=== PATIENT | female | born 1980 | race African-American/Black ===

== ENCOUNTER 2017-05-16 11:55 | Emergency (ER) | payer OTHER, MEDICAID ==
[~2017-05-16] VITALS: Ht 162.6 cm; Wt 100.2 kg
[~2017-05-16 11:55] MED LIST: AMLO5TAB8 PO; ATEN25TA2 PO; ATI.5 PO; BUS5 PO; DICY20TA13 PO; FLUO-387 PO; FURO-572 PO; MESA1.2T PO; OMEP20TC10 PO; PANT40EC PO; TRAZ-289 PO
[2017-05-16 12:06] VITALS: BP 124/88
--- NOTE | 2017-05-16 12:52 | NUR ---
Patient ambulated to bed 7 at this time.
--- NOTE | 2017-05-16 13:02 | NUR ---
PT REFERRED TO ER BY PCP FOR EVALUATION OF EPIGASTRIC PAIN, R/O PANCREATITIS OR ALTERNATE ACUTE ETIOLOGY. HX HTN, CROHN'S DISEASE, COLITIS, DEPRESSION.PT STATES SHE HAS N AND VOMITTED TODAY. SKIN IS PINK/WARM/DRY; AAOX4 WITH EVEN AND STEADY GAIT; LUNGS CLEAR BL; HR EVEN AND REGULAR; PT DENIES ANY FEVER, CP, SOB, OR COUGH AT THIS TIME; PATIENT STATES PAIN OF 9/10 AT THIS TIME; PATIENT POSITIONED FOR COMFORT; HOB ELEVATED; BEDRAILS UP X2; BED DOWN. ER MD WILL BE NOTIFIED.
[2017-05-16] MEDS ORDERED: NACL 0.9% 1,000 ML IV ONE (13:15)
[2017-05-16] MEDS ORDERED: HYDROmorphone 1 MG/ML AMP IVP ONE ×2 (13:15→15:00)
[2017-05-16 14:08] LABS: BASOPHILS # (AUTO) 0.2 K/uL (0.00-0.22); BASOPHILS % (AUTO) 2.1 % (0.0-2.0); EOSINOPHILS # (AUTO) 0.2 K/uL (0-0.4); EOSINOPHILS % (AUTO) 1.9 % (0.0-4.0); HEMATOCRIT 26.6 % (36-48); HEMOGLOBIN 7.4 g/dL (12.0-16.0); LYMPHOCYTES # (AUTO) 2.2 K/uL (2.5-16.5); LYMPHOCYTES % (AUTO) 19.5 % (20.5-51.1); MEAN CORPUSCULAR HEMOGLOBIN 17 pg (27-31); MEAN CORPUSCULAR HGB CONC 28 g/dL (33-37); MEAN CORPUSCULAR VOLUME 60 fL (80-94); MONOCYTES # (AUTO) 0.5 K/uL (0.8-1.0); MONOCYTES % (AUTO) 4.4 % (1.7-9.3); NEUTROPHILS % (AUTO) 72.1 % (42.2-75.2); PLATELET COUNT (AUTO) 442 K/uL (140-450); RED BLOOD CELL COUNT(AUTO) 4.41 MIL/uL (4.20-5.40); RED CELL DISTRIBUTION WIDTH 17.4 % (11.6-13.7); WHITE BLOOD COUNT (AUTO) 11.1 K/uL (4.8-10.8)
[2017-05-16 14:19] LABS: APPEARANCE,URINE CLEAR (CLEAR); BILIRUBIN,URINE 1+ (NEGATIVE); BLOOD, URINE NEGATIVE (NEGATIVE); COLOR,URINE YELLOW (YELLOW); LEUKOCYTE ESTERASE ,URINE NEGATIVE (NEGATIVE); NITRITE, URINE NEGATIVE (NEGATIVE); PH,URINE 5.5 (5.0-9.0); PROTEIN,URINE TRACE (NEGATIVE); UGLUCOSE NEGATIVE (NEGATIVE); UROBILINOGEN,URINE 0.2 EU/dL (0.2 - 1)
[2017-05-16 14:31] LABS: ANION GAP 14.2 (8-16); CALCIUM 8.9 mg/dL (8.5-10.1); CARBON DIOXIDE 24.6 mmol/L (21-32); CREATININE 0.7 mg/dL (0.6-1.3); POTASSIUM 3.8 mmol/L (3.5-5.1)
[2017-05-16 14:33] LABS: AMPHETAMINE, URINE NEG. ng/ml (NEG <=1000); BARBITURATE, URINE NEG. ng/ml (NEG <=200); BENZODIAZEPINE, URINE NEG. ng/mL (NEG <=200); CANNABINOID, URINE NEG. ng/mL (NEG <=50); COCAINE, URINE NEG. ng/mL (NEG <=300); OPIATE, URINE NEG. ng/mL (NEG <=2000); PHENCYCLIDINE SCREEN,URINE NEG. ng/mL (NEG <=25)
[2017-05-16 14:45] LABS: ALBUMIN 2.9 g/dL (3.4-5.0); TOTAL BILIRUBIN 0.2 mg/dL (0.0-1.0); TOTAL PROTEIN, SERUM 7.4 g/dL (6.4-8.2)
--- NOTE | 2017-05-16 16:07 | NUR ---
Patient discharged with v/s stable. Written and verbal after care instructions given and explained. Patient alert, oriented and verbalized understanding of instructions. Ambulatory with steady gait. All questions addressed prior to discharge. ID band removed. Patient advised to follow up with PMD. Rx of NORCO AND ZOFRAN given. Patient educated on indication of medication including possible reaction and side effects. Opportunity to ask questions provided and answered.
[2017-05-16 16:08] VITALS: BP 141/88
== END 2017-05-16 16:07 | disposition home or self-care (01) ==
LOC: MED 11:55
DX: R10.13 Epigastric pain (principal); K58.0 Irritable bowel syndrome with diarrhea; D64.9 Anemia, unspecified; Z88.5 Allergy status to narcotic agent; Z88.1 Allergy status to other antibiotic agents; I10 Essential (primary) hypertension; F32.9 Major depressive disorder, single episode, unspecified; K50.90 Crohn's disease, unspecified, without complications
CPT/HCPCS: 36415; 74176; 80053; 80305; 81003; 81025; 83605; 83690; 85025; 96361; 96374; 96376; 99285; J1170; J7030

== ENCOUNTER 2017-05-19 18:00 | Inpatient (IN) | payer OTHER, MEDICAID ==
[~2017-05-19] VITALS: Ht 162.6 cm; Wt 99.8 kg
[2017-05-19 18:02] VITALS: BP 113/65
[2017-05-19 19:03] LABS: BASOPHILS # (AUTO) 0.2 K/uL (0.00-0.22); BASOPHILS % (AUTO) 1.2 % (0.0-2.0); EOSINOPHILS # (AUTO) 0.5 K/uL (0-0.4); EOSINOPHILS % (AUTO) 3.3 % (0.0-4.0); HEMATOCRIT 26.2 % (36-48); HEMOGLOBIN 7.4 g/dL (12.0-16.0); LYMPHOCYTES # (AUTO) 1.3 K/uL (2.5-16.5); LYMPHOCYTES % (AUTO) 8.9 % (20.5-51.1); MEAN CORPUSCULAR HEMOGLOBIN 17 pg (27-31); MEAN CORPUSCULAR HGB CONC 28 g/dL (33-37); MEAN CORPUSCULAR VOLUME 59 fL (80-94); MONOCYTES # (AUTO) 0.3 K/uL (0.8-1.0); MONOCYTES % (AUTO) 2.3 % (1.7-9.3); NEUTROPHILS # (AUTO) 12.6 K/uL (1.8-7.7); NEUTROPHILS % (AUTO) 84.3 % (42.2-75.2); PLATELET COUNT (AUTO) 477 K/uL (140-450); RED BLOOD CELL COUNT(AUTO) 4.42 MIL/uL (4.20-5.40); WHITE BLOOD COUNT (AUTO) 14.9 K/uL (4.8-10.8)
[2017-05-19 19:14] LABS: ANION GAP 12.2 (8-16); CALCIUM 8.8 mg/dL (8.5-10.1); CARBON DIOXIDE 25.5 mmol/L (21-32); CREATININE 0.7 mg/dL (0.6-1.3); POTASSIUM 3.7 mmol/L (3.5-5.1)
[2017-05-19 19:19] LABS: ALBUMIN 2.9 g/dL (3.4-5.0); TOTAL BILIRUBIN 0.3 mg/dL (0.0-1.0); TOTAL PROTEIN, SERUM 7.4 g/dL (6.4-8.2)
--- NOTE | 2017-05-19 19:49 | NUR ---
PATIENT AMBULATED TO ER BED 5.
--- NOTE | 2017-05-19 19:50 | NUR ---
PATIENT PRESENTS TO ED WITH SEVERE ABDOMINAL PAIN X1 WEEK . PT STATES SHE WAS IN ER YESTERDAY, IT IS GETTING WORSE; NAUSEA AND VOMITING PRESENT, PT IS AAOX4 WITH EVEN AND STEADY GAIT; LUNGS CLEAR BL; HR EVEN AND REGULAR; PT DENIES ANY FEVER, CP, SOB, OR COUGH AT THIS TIME; SKIN IS PINK/WARM/DRY;PATIENT STATES PAIN OF 10/10 AT THIS TIME; VSS; PATIENT POSITIONED FOR COMFORT; HOB ELEVATED; BEDRAILS UP X2; BED DOWN. ER MD MADE AWARE OF PT STATUS.
--- NOTE | 2017-05-19 20:28 | NUR ---
PATIENT BEING EVALUATED BY DR. LATHAM.
[2017-05-19] MEDS ORDERED: NACL 0.9% 1,000 ML IV ONE (20:55)
[2017-05-19] MEDS ORDERED: HYDROmorphone 1 MG/ML AMP IVP ONE ×2 (20:55→22:45)
--- NOTE | 2017-05-19 21:25 | NUR ---
OFF UNIT FOR CT VIA WHEELCHAIR
--- NOTE | 2017-05-19 21:32 | NUR ---
PT IS BACK TO UNIT, STILL C/O PAIN, ER MD MADE AWARE.
[2017-05-19] MEDS ORDERED: DOCUSATE SODIUM 100 MG GELCAP PO PRN (22:35)
[2017-05-19] MEDS ORDERED: ACETAMINOPHEN 325 MG TAB PO PRN (22:35)
[2017-05-19 22:47] LABS: BLOOD, URINE NEGATIVE (NEGATIVE); COLOR,URINE YELLOW (YELLOW); LEUKOCYTE ESTERASE ,URINE NEGATIVE (NEGATIVE); NITRITE, URINE NEGATIVE (NEGATIVE); PROTEIN,URINE TRACE (NEGATIVE); UGLUCOSE NEGATIVE (NEGATIVE); UROBILINOGEN,URINE 0.2 EU/dL (0.2 - 1)
[2017-05-19 22:51] LABS: APPEARANCE,URINE HAZY (CLEAR); BILIRUBIN,URINE NEGATIVE (NEGATIVE)
[2017-05-19 22:52] LABS: BACTERIA,URINE 1+ /HPF (None Seen); MUCUS,URINE 3+ /LPF (None Seen); RBC,URINE 0-5 /HPF (0-5); WBC,URINE 0-5 /HPF (0-5)
[2017-05-19 22:54] LABS: AMPHETAMINE, URINE NEG. ng/ml (NEG <=1000); BARBITURATE, URINE NEG. ng/ml (NEG <=200); BENZODIAZEPINE, URINE NEG. ng/mL (NEG <=200); CANNABINOID, URINE NEG. ng/mL (NEG <=50); COCAINE, URINE NEG. ng/mL (NEG <=300); OPIATE, URINE POS. ng/mL (NEG <=2000); PHENCYCLIDINE SCREEN,URINE NEG. ng/mL (NEG <=25)
[2017-05-19 23:04] LABS: MAGNESIUM 1.8 mg/dL (1.8-2.4); PHOSPHORUS 3.4 mg/dL (2.5-4.9); THYROID STIMULATING HORMONE 1.42 uIU/mL (0.34-3.74)
[2017-05-19] MEDS ORDERED: LORazepam 0.5 MG TAB PO PRN (23:05)
[2017-05-19] MEDS ORDERED: DICYCLOMINE HCL PO PRN (23:05)
--- NOTE | 2017-05-20 00:05 | NUR ---
PT TRANSFERRED TO ROOM 104A VIA [facility], REPORT GIVEN TO ERIN GARCIA.
--- NOTE | 2017-05-20 00:10 | NUR ---
ADMITTED A 37 YEARS OLD FEMALE TO TELE UNIT. PATIENT AWAKE ALERT ORIENTED X4, NO S/S OF ACUTE DISTRESS NOTED, RESPIRATION EVEN AND UNLABORED. TELE MONITOR IS IN PLACE. IV PATENT AND INTACT. CALL LIGHT WITHIN REACH, SAFETY MEASURE ENSURED, DR. MARVIN IS IN THE ROOM ASSESSING AND INTERVIEWING THE PATIENT AT THIS TIME.
[2017-05-20] MEDS ORDERED: HYDROmorphone 1 MG/ML AMP IVP PRN ×2 (00:20→16:20)
[2017-05-20 00:30] VITALS: BP 134/83
[2017-05-20] MEDS ORDERED: cefTRIAXone 1,000 MG VIAL ONE (01:00)
[2017-05-20 01:03] LABS: LACTIC ACID 0.5 mmol/L (0.4-2.0)
[2017-05-20] MEDS: NACL 0.9% 1,000 ML IV SCH ×4 (01:05→22:16)
[2017-05-20] MEDS ORDERED: ESCI20TA PO (01:16)
[2017-05-20] MEDS ORDERED: BUS5 PO (01:16)
--- NOTE | 2017-05-20 01:20 | NUR ---
PATIENT REPORTED ABDOMINAL PAIN 06/25. MEDICATED ORDERED. CALL LIGHT WITHIN REACH, SAFETY MEASURE ENSURED, WILL CONTINUE TO MONITOR.
[2017-05-20] MEDS ORDERED: FERRIC GLUCONATE 125 MG in NACL 0.9% 100 ML IV SCH ×3 (02:00→12:00)
--- NOTE | 2017-05-20 03:30 | NUR ---
PATIENT SLEEPING IN BED, NO S/S OF ACUTE DISTRESS NOTED, RESPIRATION EVEN AND UNLABORED. CALL LIGHT WITHIN REACH, SAFETY MEASURE ENSURED, WILL CONTINUE TO MONITOR.
[2017-05-20 04:00] VITALS: BP 130/86
[2017-05-20] MEDS: HYDROmorphone 1 MG/ML AMP IVP PRN ×3 (07:06→22:35)
--- NOTE | 2017-05-20 07:10 | NUR ---
PATIENT REPORTED ABDOMINAL PAIN 06/25. MEDICATED ORDERED, CHANGED POSITION, AND DIM LIGHT, SAFETY MEASURE ENSURED, WILL CONTINUE TO MONITOR
--- NOTE | 2017-05-20 07:30 | NUR ---
RECEIVED REPORT FROM NIGHT NURSE, PT IS AAOX4, PT ON ROOM AIR, IV TO L HAND 22 G, INFUSING WELL, SKIN IS IN TACT, INITIAL ASSESSMENT COMPLETED, REVIEWED PLAN OF CARE WITH PT, PT VERBALIZED UNDERSTANDING, ALL SAFETY PRECAUTIONS MET, CALL LIGHT WITHIN REACH, WILL CONTINUE TO MONITOR.
--- NOTE | 2017-05-20 07:40 | NUR ---
ENDORSED PLAN OF CARE TO DAY RN, PATIENT IS IN STABLE CONDITION. RESPIRATION EVEN AND UNLABORED, AWAKE ALERT ORIENTEDX4.
[2017-05-20 07:46] LABS: ANION GAP 14.7 (8-16); CALCIUM 8.2 mg/dL (8.5-10.1); CARBON DIOXIDE 22.8 mmol/L (21-32); CREATININE 0.6 mg/dL (0.6-1.3); POTASSIUM 3.5 mmol/L (3.5-5.1)
[2017-05-20 07:55] LABS: MEAN CORPUSCULAR HEMOGLOBIN 18 pg (27-31); MEAN CORPUSCULAR HGB CONC 29 g/dL (33-37); MEAN CORPUSCULAR VOLUME 60 fL (80-94); PLATELET COUNT (AUTO) 379 K/uL (140-450); RED BLOOD CELL COUNT(AUTO) 3.68 MIL/uL (4.20-5.40); RED CELL DISTRIBUTION WIDTH 17.3 % (11.6-13.7); WHITE BLOOD COUNT (AUTO) 9.9 K/uL (4.8-10.8)
[2017-05-20 08:04] LABS: HEMOGLOBIN 6.4 g/dL (12.0-16.0)
[2017-05-20 08:13] VITALS: BP 116/61
[2017-05-20] MEDS ORDERED: methylPREDNISolone SS 40 MG/ML VIAL IVP SCH (08:33)
[2017-05-20 08:48] LABS: EOSINOPHILS % (MANUAL) 2 % (0-4); LYMPHOCYTES % (MANUAL) 10 % (20-46); MONOCYTES % (MANUAL) 5 % (5-12); NEUTROPHILS % (MANUAL) 83 (43-65); PLATELET ESTIMATE ADEQUATE
[2017-05-20 08:49] LABS: HYPOCHROMASIA 2+; TARGET CELLS 1+
[2017-05-20] MEDS: FLUoxetine 20 MG CAP PO SCH ×2 (09:00→09:05)
[2017-05-20] MEDS ORDERED: MESALAMINE PO SCH (09:00)
[2017-05-20] MEDS ORDERED: PANTOPRAZOLE 40 MG TABEC PO SCH (09:00)
[2017-05-20] MEDS: amLODIPine 5 MG TAB PO SCH (09:00)
[2017-05-20] MEDS: busPIRone 5 MG TAB PO SCH ×2 (09:03→21:06)
[2017-05-20] MEDS: predniSONE 20 MG TAB PO SCH (09:04)
[2017-05-20] MEDS: PANTOPRAZOLE 40 MG TABEC PO SCH (09:04)
[2017-05-20] MEDS: FUROSEMIDE 20 MG TAB PO SCH (09:05)
--- NOTE | 2017-05-20 09:05 | NUR ---
DUE MEDICATIONS GIVEN, NORVASC NOT GIVEN BP OF 116/61, PT C/O ABD PAIN 05/25, WILL MEDICATE PER MD ORDERS. ALL NEEDS MET. WILL CONTINUE TO MONITOR.
[2017-05-20] MEDS: ATENOLOL 25 MG TAB PO SCH ×2 (09:06→21:07)
[2017-05-20] MEDS: HYDROcodone/APAP 7.5/325 MG 1 TAB PO PRN (09:31)
--- NOTE | 2017-05-20 10:41 | NUR ---
05/20/17 RD INITIAL ASSESSMENT COMPLETED PLEASE REFER TO NUTRITION ASSESSMENT UNDER CARE ACTIVITY FOR ESTIMATED NEEDS. RECOMMENDATIONS: 1. CONTINUE SOFT DIET TOLERATED. 2. APPRECIATE FOOD PREFERENCES. 3. RD WILL FOLLOW UP IN 2-3 DAYS; HIGH RISK. WILMER AMEZCU[address] RD
[2017-05-20] MEDS ORDERED: MESALAMINE 250 MG CAPER PO SCH (10:45)
--- NOTE | 2017-05-20 11:39 | NUR ---
PLACED PT ON SALINE LOCK.
[2017-05-20 12:00] VITALS: BP 112/44
[2017-05-20] MEDS ORDERED: FERRIC GLUCONATE 125 MG in NACL 0.9% 100 ML IV ONE (12:30)
--- NOTE | 2017-05-20 12:48 | NUR ---
PT STATES PAIN LEVEL AT 7/10, WILL MEDICATE ONCE PAIN MEDICATION IS DUE. ALL NEEDS MET. WILL CONTINUE TO MONITOR.
--- NOTE | 2017-05-20 15:25 | NUR ---
PT CURRENTLY TAKING A SHOWER
[2017-05-20 15:26] LABS: HEMATOCRIT 24.6 % (36-48); MEAN CORPUSCULAR HEMOGLOBIN 17 pg (27-31); MEAN CORPUSCULAR HGB CONC 28 g/dL (33-37); MEAN CORPUSCULAR VOLUME 60 fL (80-94); PLATELET COUNT (AUTO) 441 K/uL (140-450); RED CELL DISTRIBUTION WIDTH 17.1 % (11.6-13.7); WHITE BLOOD COUNT (AUTO) 10.5 K/uL (4.8-10.8)
[2017-05-20 15:37] LABS: HEMOGLOBIN 6.9 g/dL (12.0-16.0)
[2017-05-20 15:54] LABS: BAND % (MANUAL) 1 % (0-8); EOSINOPHILS % (MANUAL) 1 % (0-4); HYPOCHROMASIA 3+; LYMPHOCYTES % (MANUAL) 5 % (20-46); NEUTROPHILS % (MANUAL) 93 (43-65); PLATELET ESTIMATE ADEQUATE
[2017-05-20 16:00] VITALS: BP 112/72
[2017-05-20] MEDS: MESALAMINE 250 MG CAPER PO SCH ×2 (16:59→21:10)
--- NOTE | 2017-05-20 17:01 | NUR ---
DUE MEDICATIONS GIVEN, PT TOLERATED WELL. ALL NEEDS MET. WILL CONTINUE TO MONITOR
--- NOTE | 2017-05-20 19:15 | NUR ---
ENDORSED PLAN OF CARE TO NIGHT NURSE PT IN STABLE CONDITION.
--- NOTE | 2017-05-20 19:15 | NUR ---
RECEIVED PATIENT REPORT AT BEDSIDE. PATIENT AWAKE, ALERT AND ORIENTED. PATIENT C/O 10/10 ABD PAIN. PATIENT WAS MEDICATED BY THE DAY NURSE. WILL CONTINUE TO MONITOR. BED LOWERED WITH CALL LIGHT WITHIN REACH. WILL CONTINUE TO MONITOR
[2017-05-20 19:52] VITALS: BP 125/72
--- NOTE | 2017-05-20 20:00 | NUR ---
PATIENT STATES THAT DILAUDID AND NORCO DO NOT RELIEVE HER PAIN. MADE DR VALENCIA AWARE
[2017-05-20] MEDS ORDERED: traZODone 50 MG TAB PO SCH (21:00)
[2017-05-20] MEDS ORDERED: DICYCLOMINE 10 MG CAP PO SCH (21:00)
[2017-05-20] MEDS: DICYCLOMINE 10 MG CAP PO SCH (21:09)
[2017-05-20] MEDS: ONDANSETRON 4 MG/2 ML VIAL IM/IVP PRN (22:43)
[2017-05-21 00:26] VITALS: BP 96/46
[2017-05-21] MEDS: HYDROcodone/APAP 7.5/325 MG 1 TAB PO PRN (00:33)
[2017-05-21 03:24] VITALS: BP 103/58
[2017-05-21] MEDS: HYDROmorphone 1 MG/ML AMP IVP PRN ×4 (03:26→13:07)
[2017-05-21] MEDS: NACL 0.9% 1,000 ML IV SCH ×2 (04:11→11:36)
[2017-05-21 07:09] LABS: ANION GAP 11.1 (8-16); CALCIUM 8.7 mg/dL (8.5-10.1); CARBON DIOXIDE 25.1 mmol/L (21-32); CREATININE 0.7 mg/dL (0.6-1.3); POTASSIUM 3.2 mmol/L (3.5-5.1)
[2017-05-21 07:12] LABS: HEMATOCRIT 22.4 % (36-48); MEAN CORPUSCULAR HEMOGLOBIN 17 pg (27-31); MEAN CORPUSCULAR HGB CONC 29 g/dL (33-37); MEAN CORPUSCULAR VOLUME 60 fL (80-94); PLATELET COUNT (AUTO) 359 K/uL (140-450); RED BLOOD CELL COUNT(AUTO) 3.74 MIL/uL (4.20-5.40); RED CELL DISTRIBUTION WIDTH 17.7 % (11.6-13.7)
[2017-05-21 07:17] LABS: MAGNESIUM 1.8 mg/dL (1.8-2.4); PHOSPHORUS 3.3 mg/dL (2.5-4.9)
[2017-05-21 07:20] LABS: HEMOGLOBIN 6.4 g/dL (12.0-16.0)
--- NOTE | 2017-05-21 07:27 | NUR ---
RECEIVED REPORT FROM NIGHT NURSE, PT IS AAOX4, PT IS ON ROOM AIR, IV TO L FA 22 G, INFUSING WELL, PATENT, SKIN IS INTACT, INITIAL ASSESSMENT COMPLETED.REVIEWED PLAN OF CARE WITH PT, VERBALIZED UNDERSTANDING, ALL SAFETY PRECAUTIONS MET, CALL LIGHT WITHIN REACH, WILL CONTINUE TO MONITOR
--- NOTE | 2017-05-21 07:27 | NUR ---
PATIENT REPORT GIVEN AT BEDSIDE. PATIENT ENDORSED IN STABLE CONDITION
[2017-05-21 07:53] LABS: BAND % (MANUAL) 0 % (0-8); BASOPHILS % (MANUAL) 0 % (0-2); EOSINOPHILS % (MANUAL) 2 % (0-4); LYMPHOCYTES % (MANUAL) 17 % (20-46); MONOCYTES % (MANUAL) 8 % (5-12); NEUTROPHILS % (MANUAL) 73 (43-65); PLATELET ESTIMATE ADEQUATE
[2017-05-21 08:00] VITALS: BP 121/77
[2017-05-21] MEDS: amLODIPine 5 MG TAB PO SCH (09:00)
[2017-05-21] MEDS: FLUoxetine 20 MG CAP PO SCH (09:00)
[2017-05-21] MEDS: ATENOLOL 25 MG TAB PO SCH (09:00)
[2017-05-21] MEDS: predniSONE 20 MG TAB PO SCH (09:53)
[2017-05-21] MEDS: DICYCLOMINE 10 MG CAP PO SCH ×2 (09:54→12:22)
[2017-05-21] MEDS: ONDANSETRON 4 MG/2 ML VIAL IM/IVP PRN (09:54)
[2017-05-21] MEDS: PANTOPRAZOLE 40 MG TABEC PO SCH (09:54)
[2017-05-21] MEDS: FUROSEMIDE 20 MG TAB PO SCH (09:54)
[2017-05-21] MEDS: busPIRone 5 MG TAB PO SCH (09:54)
[2017-05-21] MEDS: MESALAMINE 250 MG CAPER PO SCH ×2 (09:55→12:22)
--- NOTE | 2017-05-21 09:56 | NUR ---
DUE MEDICATION GIVEN PT TOLERATED WELL. DUE MEDICATION GIVEN. ALL NEEDS MET WILL CONTINUE TO MONITOR
[2017-05-21] MEDS ORDERED: FERRIC GLUCONATE 125 MG in NACL 0.9% 100 ML IV SCH (12:00)
--- NOTE | 2017-05-21 12:31 | NUR ---
MEDICATIONS ADMINISTERED, PT TOLERATED WELL, ALL NEEDS MET, SAFETY PRECAUTIONS IN PLACE, CALL LIGHT WITHIN REACH, WILL CONTINUE TO MONITOR
[2017-05-21 13:20] LABS: T4 (THYROXINE) 14.6 ug/dL (4.5 - 12.0)
--- NOTE | 2017-05-21 13:33 | NUR ---
ENDORSED PLAN OF CARE TO LAXMI RN. PT STABLE CONDITION.
--- NOTE | 2017-05-21 15:00 | NUR ---
PT WANTS TO LEAVE AMA BECAUSE SHE HAS NOTHING SHE CAN EAT HERE IN THE HOSPITAL, DR GUTIERREZ MADE AWARE.
--- NOTE | 2017-05-21 15:14 | NUR ---
PT SIGNED AMA FORM, IV DC'D, CATH TIP INTACT, BLEEDING CONTROLLED, PT WALKED OUT OF ROOM, ESCORTED OUT TO FRONT LOBBY.
[2017-05-22] MEDS ORDERED: LACTOBACILLUS RHAMNOSUS GG 1 EACH CAP PO SCH (09:00)
[2017-05-23 11:20] LABS: HEMOGLOBIN A1C 5.8 % (4.8-5.6)
== END 2017-05-21 15:14 | disposition left against medical advice (07) | DRG 871 ==
LOC: MED 18:00 → MTU 22:38
PROVIDERS: ADMIT Family Medicine; ATTEND Family Medicine
DX: A41.9 Sepsis, unspecified organism (principal); N17.0 Acute kidney failure with tubular necrosis; K50.00 Crohn's disease of small intestine without complications; N39.0 Urinary tract infection, site not specified; E44.1 Mild protein-calorie malnutrition; K56.7 Ileus, unspecified; K57.32 Diverticulitis of large intestine without perforation or abscess without bleeding; F32.9 Major depressive disorder, single episode, unspecified; I10 Essential (primary) hypertension; E83.51 Hypocalcemia; D50.0 Iron deficiency anemia secondary to blood loss (chronic); E11.51 Type 2 diabetes mellitus with diabetic peripheral angiopathy without gangrene; Z53.21 Procedure and treatment not carried out due to patient leaving prior to being seen by health care provider; Z88.6 Allergy status to analgesic agent; Z88.5 Allergy status to narcotic agent; Z88.8 Allergy status to other drugs, medicaments and biological substances; Z91.018 Allergy to other foods; Z79.899 Other long term (current) drug therapy; Z90.49 Acquired absence of other specified parts of digestive tract; Z98.51 Tubal ligation status; Z71.3 Dietary counseling and surveillance; Z68.37 Body mass index [BMI] 37.0-37.9, adult
CPT/HCPCS: 36415; 71010; 80048; 80053; 80305; 81001; 83036; 83605; 83690; 83735; 83880; 84100; 84436; 84443; 84479; 85025; 87040; 87081; 93005; 96374; 96376; 99285; J0696; J1170; J2405; J2916; J2920; J7030; J7060; J7512; Q0092

== ENCOUNTER 2017-06-09 07:38 | Inpatient (IN) | payer OTHER, MEDICAID ==
[~2017-06-09] VITALS: Ht 162.6 cm; Wt 98.9 kg
[~2017-06-09 07:38] MED LIST changes: -ATI.5 PO; -DICY20TA13 PO; +ESCI20TA PO; -FLUO-387 PO; -FURO-572 PO; -OMEP20TC10 PO
[2017-06-09 07:49] VITALS: BP 140/82
--- NOTE | 2017-06-09 07:57 | NUR ---
PATIENT AMBULATED TO ER BED 5.
--- NOTE | 2017-06-09 08:01 | NUR ---
ER MD DR. MCKAY EVALUATING PT AT BEDSIDE.
--- NOTE | 2017-06-09 08:05 | NUR ---
37 F C/O "SHARP" CONSTANT 06/25 MID ABDOMINAL PAIN 06/25 X 2-4 DAYS WITH N/V/D; PT HAS HX OF CHRONS DX; PATIENT DENIES ANY BLOOD IN STOOL, URINARY COMPLAINTS, FEVER, OR CHILLS; PT IS A&OX4 WITH STEADY GAIT; RR ARE EVEN AND UNLABORED; SKIN IS WARM/PINK/DRY; PATIENT POSITIONED FOR COMFORT; HOB ELEVATED; BEDRAILS UP X2; BED DOWN; WILL CONTINUE TO MONITOR
[2017-06-09] MEDS ORDERED: NACL 0.9% 1,000 ML IV ONE ×2 (08:10→09:05)
[2017-06-09] MEDS ORDERED: HYDROmorphone PFS 2 MG/ML SYR IVP ONE ×3 (08:10→12:35)
[2017-06-09] MEDS ORDERED: ONDANSETRON 4 MG/2 ML VIAL IVP ONE (08:10)
[2017-06-09 08:43] LABS: ANION GAP 13.6 (8-16); CARBON DIOXIDE 23.3 mmol/L (21-32); CREATININE 0.7 mg/dL (0.6-1.3); POTASSIUM 3.9 mmol/L (3.5-5.1)
[2017-06-09 08:48] LABS: ALBUMIN 3.3 g/dL (3.4-5.0); TOTAL BILIRUBIN 0.2 mg/dL (0.0-1.0)
[2017-06-09 08:59] LABS: HEMATOCRIT 29.3 % (36-48); HEMOGLOBIN 8.3 g/dL (12.0-16.0); MEAN CORPUSCULAR HEMOGLOBIN 18 pg (27-31); MEAN CORPUSCULAR HGB CONC 28 g/dL (33-37); MEAN CORPUSCULAR VOLUME 63 fL (80-94); PLATELET COUNT (AUTO) 521 K/uL (140-450); RED BLOOD CELL COUNT(AUTO) 4.68 MIL/uL (4.20-5.40); RED CELL DISTRIBUTION WIDTH 22.2 % (11.6-13.7); WHITE BLOOD COUNT (AUTO) 9.4 K/uL (4.8-10.8)
[2017-06-09] MEDS ORDERED: diphenhydrAMINE 50 MG/ML VIAL IVP ONE ×2 (09:05→12:35)
[2017-06-09 09:09] LABS: EOSINOPHILS % (MANUAL) 2 % (0-4); LYMPHOCYTES % (MANUAL) 18 % (20-46); MONOCYTES % (MANUAL) 6 % (5-12)
[2017-06-09 11:27] LABS: APPEARANCE,URINE HAZY (CLEAR); BILIRUBIN,URINE 1+ (NEGATIVE); BLOOD, URINE 3+ (NEGATIVE); COLOR,URINE ORANGE (YELLOW); LEUKOCYTE ESTERASE ,URINE NEGATIVE (NEGATIVE); NITRITE, URINE NEGATIVE (NEGATIVE); UGLUCOSE NEGATIVE (NEGATIVE)
--- NOTE | 2017-06-09 11:30 | NUR ---
PT TAKEN TO CT VIA W/C ACCOMPANIED BY [employer] AT THIS TIME.
[2017-06-09 11:37] LABS: RBC,URINE 50-80 /HPF (0-5); WBC,URINE 0-5 /HPF (0-5)
--- NOTE | 2017-06-09 11:52 | NUR ---
PT RETURNED FROM CT VIA WHEELCHAIR; PT RETURNED TO [facility] WITHOUT INCIDENT
--- NOTE | 2017-06-09 12:06 | NUR ---
PT IS IN GURNEY HOB ELEVATED; PT POSITIONED FOR COMFORT; PT TALKING ON PHONE; VSS; NAD; WILL CONTINUE TO MONITOR
--- NOTE | 2017-06-09 12:37 | NUR ---
ER MD NOTIFIED PT PAIN 06/25 AT THIS TIME; RR EVEN/UNLABORED; POSITIONED FOR COMFORT; WILL CONTINUE TO MONITOR.
[2017-06-09] MEDS ORDERED: HYDROcodone/APAP 7.5/325 MG 1 TAB PO PRN (12:50)
[2017-06-09] MEDS ORDERED: ACETAMINOPHEN 325 MG TAB PO PRN (12:50)
[2017-06-09] MEDS ORDERED: ONDANSETRON 4 MG/2 ML VIAL IVP PRN (12:50)
--- NOTE | 2017-06-09 13:20 | NUR ---
INFLITRATION AND PAIN TO R FOREARM IV SITE; MD MCKAY NOTIFIED AND AWARE AND BY BEDSIDE; IV REMOVED AND CATHETER INTACT; DRESSING APPLIED; CMS INTACT; ICE PACK APPLIED; WILL CONTINUE TO MONITOR
[2017-06-09 13:27] LABS: CHOL/HDL RATIO 2.4 (1-4.5); FREE T4 (FREE THYROXINE) 1.28 ng/dL (0.76-1.46); PHOSPHORUS 3.5 mg/dL (2.5-4.9); THYROID STIMULATING HORMONE 0.92 uIU/mL (0.34-3.74)
--- NOTE | 2017-06-09 13:30 | NUR ---
Patient will be admitted to care of Ruslan. Admited to Tele. Will go to room 119B. Belongings list completed. Report to 119b.
[2017-06-09] MEDS ORDERED: hydrOXYzine 50 MG/ML VIAL IM SCH (13:45)
[2017-06-09 13:48] LABS: PROTHROMBIN TIME 9.8 secs (10.8-13.4)
[2017-06-09 13:50] VITALS: BP 115/54
--- NOTE | 2017-06-09 13:50 | NUR ---
PATIENT ADMITTED TO THE UNIT FROM THE ER. PATIENT IS ALERT AND ORIENTED. NO SIGNS AND SYMPTOMS OF DISTRESS NOTED AT THIS TIME. PATIENT IS AMBULATORY. IV SITE NOTED ON THE LEFT HAND, ASYMPTOMATIC, INTACT AND PATENT. PATIENT PLACED ON TELE MONITORING. VITAL SIGNS CHECKED AND WITHIN NORMAL LIMITS. WILL CONTINUE TO MONITOR.
[2017-06-09 14:17] LABS: BARBITURATE, URINE NEG. ng/ml (NEG <=200); BENZODIAZEPINE, URINE NEG. ng/mL (NEG <=200); CANNABINOID, URINE NEG. ng/mL (NEG <=50); COCAINE, URINE NEG. ng/mL (NEG <=300); OPIATE, URINE POS. ng/mL (NEG <=2000); PHENCYCLIDINE SCREEN,URINE NEG. ng/mL (NEG <=25)
[2017-06-09] MEDS: NACL 0.9% 1,000 ML IV SCH ×2 (14:30→22:46)
--- NOTE | 2017-06-09 14:30 | NUR ---
PATIENT WAS SEEN BY DR. LOWERY.
[2017-06-09] MEDS: HYDROmorphone 1 MG/ML AMP IVP PRN ×2 (15:46→20:31)
[2017-06-09 16:00] VITALS: BP 106/67
[2017-06-09] MEDS ORDERED: FERRIC GLUCONATE 125 MG in NACL 0.9% 100 ML IV SCH (16:00)
--- NOTE | 2017-06-09 16:30 | NUR ---
PER DR LOWERY, PATIENT OK TO SHOWER
[2017-06-09] MEDS: MESALAMINE 400 MG CAPSULE.DR PO SCH ×2 (16:56→21:19)
--- NOTE | 2017-06-09 17:21 | NUR ---
PATIENT COMPLAINED OF ITCHINESS. DR. HINKLE INFORMED. ORDERS RECEIVED.
--- NOTE | 2017-06-09 19:27 | NUR ---
PATIENT IS CURRENTLY AWAKE ALERT ORIENTED CAME BACK FROM TAKING A BATH AND CURRENTLY PUTTING LOTION ON HERSELF.PATIENT DENIES PAIN AT THIS TIME.PATIENT WAS INFORMED THAT STOOL FOR OB SPECIMEN IS NEEDED AND I PLACED A STOOL HAT IN THE BATHROOM SO STOOL CAN BE COLLECTED. PATIENT VERBALIZES UNDERSTANDING.IVF WILL BE RECONNECTED.NO COMPLAINS OF NAUSEA OR VOMITING AT THIS TIME AND NO DIARRHEA AT THIS TIME.CALL LIGHT WITHIN REACH.WILL CONTINUE TO MONITOR.
--- NOTE | 2017-06-09 19:28 | NUR ---
PATIENT REPORT GIVEN AT BEDSIDE. PATIENT IS IN STABLE CONDITION.
[2017-06-09 20:00] VITALS: BP 118/76
--- NOTE | 2017-06-09 20:38 | NUR ---
Patient's Plan of Care was discussed and reviewed with CLUTCH INSPECTOR: ISABELA BLANDON
[2017-06-09] MEDS ORDERED: DOCUSATE SODIUM 100 MG GELCAP PO SCH (21:00)
[2017-06-09] MEDS ORDERED: NON-FORMULARY ITEM (Trazodone HCl 100 MG) PO SCH (21:00)
[2017-06-09] MEDS: busPIRone 5 MG TAB PO SCH (21:18)
[2017-06-09] MEDS: traZODone 50 MG TAB PO SCH (21:18)
[2017-06-09] MEDS: ATENOLOL 25 MG TAB PO SCH (21:19)
--- NOTE | 2017-06-09 21:19 | NUR ---
PATIENT UNDERSTANDS PURPOSE FOR TAKING HER MEDS AND TOOK HER MEDS WELL,IVF INFUSING WELL IV SITE PATENT WILL CONTINUE TO MONITOR.CALL LIGHT WITHIN REACH.
--- NOTE | 2017-06-09 21:21 | NUR ---
PATIENT WAS SEEN BY MD PULIDO EARLIER AND SPOKE WITH THE PATIENT.
[2017-06-10] VITALS: BP 105/59
--- NOTE | 2017-06-10 | NUR ---
PATIENT STABLE IVF INFUSING WELL IV SITE PATENT NO INFILTRATION NOTED I ASKED PATIENT IF SHE IS HAVING PAIN.PATIENT SAID YES ABDOMINAL PAIN AND SAID HER PAIN WAS 9/10 TO ABDOMEN SEVERE PAIN.I INFORMED THE PATIENT THAT ITS NOT TIME FOR HER NEXT IV DILAUDID AND SO I OFFERED NORCO AND PATIENT REFUSED.PATIENT STATES,"I WILL WAIT FOR MY DILAUDID."PATIENT REFUSED NORCO. ERIN OSUNA AWARE AND SHE WILL ADMINISTER PAIN MEDS WHEN ITS TIME.
[2017-06-10] MEDS: HYDROmorphone 1 MG/ML AMP IVP PRN ×5 (00:41→21:59)
--- NOTE | 2017-06-10 02:40 | NUR ---
PATIENT SLEEPING ON AND OFF IVF INFUSING WELL IV SITE PATENT WILL CONTINUE TO MONITOR.
[2017-06-10 04:00] VITALS: BP 105/62
[2017-06-10] MEDS: NACL 0.9% 1,000 ML IV SCH ×2 (04:39→17:24)
--- NOTE | 2017-06-10 04:49 | NUR ---
PATIENT COMPLAINS OF FEELING SOME GENERALIZED ITCHINESS AND WAS MEDICATED WITH BENADRYL FOR ITCHING WILL CONTINUE TO MONITOR CALL LIGHT WITHIN REACH WILL CONTINUE TO MONITOR.
[2017-06-10 06:21] LABS: ANION GAP 14.3 (8-16); CARBON DIOXIDE 22.6 mmol/L (21-32); CREATININE 0.6 mg/dL (0.6-1.3); POTASSIUM 3.9 mmol/L (3.5-5.1)
[2017-06-10 06:30] LABS: MAGNESIUM 1.8 mg/dL (1.8-2.4); PHOSPHORUS 3.7 mg/dL (2.5-4.9)
--- NOTE | 2017-06-10 06:30 | NUR ---
PATIENT SITTING DOWN WATCHING TV NO COMPLAINS OF NAUSEA OR VOMITING OR ANY EPISODE OF DIARRHEA ON MY SHIFT.IVF INFUSING WELL WILL CONTINUE TO MONITOR.
--- NOTE | 2017-06-10 07:21 | NUR ---
PATIENT STABLE REPORT ENDORSED TO RN CAPITAN AT BEDSIDE.
--- NOTE | 2017-06-10 07:21 | NUR ---
RECEIVED REPORT FROM CERTIFIED PHYSICIAN'S ASSISTANT RN. PATIENT IN STABLE CONDITION, NO SIGNS AND SYMPTOMS OF DISTRESS NOTED AT THIS TIME. PATIENT IS ALERT AND AWAKE AND ORIENTED X4. NO S/S OF RESPIRATORY DISTRESS NOTED AT THIS TIME. NO COMPLAINTS OF PAIN AT THIS TIME. CALL LIGHT WITHIN REACH.
[2017-06-10 08:00] VITALS: BP 134/72
[2017-06-10] MEDS ORDERED: LACTULOSE 20 GM/30 ML UDC PO SCH (08:00)
[2017-06-10 08:08] LABS: HEMATOCRIT 24.9 % (36-48); HEMOGLOBIN 7.1 g/dL (12.0-16.0); MEAN CORPUSCULAR HEMOGLOBIN 18 pg (27-31); MEAN CORPUSCULAR HGB CONC 29 g/dL (33-37); MEAN CORPUSCULAR VOLUME 63 fL (80-94); PLATELET COUNT (AUTO) 453 K/uL (140-450); RED BLOOD CELL COUNT(AUTO) 3.94 MIL/uL (4.20-5.40); RED CELL DISTRIBUTION WIDTH 21.5 % (11.6-13.7); WHITE BLOOD COUNT (AUTO) 8.2 K/uL (4.8-10.8)
[2017-06-10] MEDS ORDERED: MESALAMINE PO SCH (09:00)
[2017-06-10] MEDS ORDERED: NON-FORMULARY ITEM (Amlodipine Besylate (Amlodipine) 5 MG) PO SCH (09:00)
[2017-06-10] MEDS: amLODIPine 5 MG TAB PO SCH (09:03)
[2017-06-10] MEDS: ESCITALOPRAM 20 MG TAB PO SCH (09:04)
[2017-06-10] MEDS: metroNIDAZOLE 250 MG TAB PO SCH ×3 (09:05→17:20)
[2017-06-10] MEDS: predniSONE 20 MG TAB PO SCH (09:05)
[2017-06-10] MEDS: busPIRone 5 MG TAB PO SCH ×2 (09:06→20:53)
[2017-06-10 09:07] LABS: EOSINOPHILS % (MANUAL) 6 % (0-4); LYMPHOCYTES % (MANUAL) 26 % (20-46); MONOCYTES % (MANUAL) 6 % (5-12)
[2017-06-10] MEDS: ATENOLOL 25 MG TAB PO SCH ×2 (09:07→20:53)
[2017-06-10] MEDS: PANTOPRAZOLE 40 MG TABEC PO SCH (09:07)
[2017-06-10] MEDS: azaTHIOprine 50 MG TAB PO SCH (09:40)
[2017-06-10] MEDS: MESALAMINE 400 MG CAPSULE.DR PO SCH ×4 (09:40→20:52)
--- NOTE | 2017-06-10 11:48 | NUR ---
PATIENT HAS BEEN SCREENED AND CATEGORIZED MODERATE NUTRITION RISK. PATIENT WILL BE SEEN WITHIN 3-5 DAYS OF ADMISSION. 06/12/17 - 06/14/17 MUSA PICKARD; EZ, RD
[2017-06-10 12:00] VITALS: BP 107/54
[2017-06-10 13:33] LABS: FOLIC ACID 8.9 ng/mL (>3.0)
[2017-06-10] MEDS ORDERED: HYDROmorphone 1 MG/ML AMP IVP PRN (15:30)
[2017-06-10 16:00] VITALS: BP 116/77
[2017-06-10] MEDS: oxyCODONE/APAP 5/325 MG 1 TAB TAB PO PRN (17:22)
--- NOTE | 2017-06-10 19:15 | NUR ---
ENDORSED PATIENT TO HEEL COVER SOFTENER RN. PATIENT STANDING NEXT TO BED. NO SIGNS AND SYMPTOMS OF DISTRESS NOTED AT THIS TIME.
--- NOTE | 2017-06-10 19:18 | NUR ---
RECEIVED REPORTS FROM DAY RN, PATIENT IS SLEEPING AT THIS TIME. NO S/S OF ACUTE DISTRESS NOTED, RESPIRATION EVEN AND UNLABORED, IV AT LT HAND THE 5TH FINGER, PATENT AND INTACT, INFUSING NS AT 100ML/HR. CALL LIGHT WITHIN REACH, SAFETY MEASURE ENSURED, WILL CONTINUE TO MONITOR.
[2017-06-10 20:00] VITALS: BP 117/71
--- NOTE | 2017-06-10 20:16 | NUR ---
NOTED IV WAS OUT AND PATIENT STATED," I WENT TO THE RESTROOM, THE IV JUST CAME OUT." UPON ASSESSMENT, IV TIP INTACT, NO ACTIVE BLEEDING NOTED AT IV SITE. CHARGE NURSE STARTED NEW IV AT LT HAND, 24G.
[2017-06-10] MEDS: traZODone 50 MG TAB PO SCH (20:53)
--- NOTE | 2017-06-10 21:59 | NUR ---
PATIENT STATED ABDOMEN PAIN 06/25. MADE DR. MARVIN AWARE, MEDICATED DILAUDID ORDERED, WILL CONTINUE TO MONITOR.
--- NOTE | 2017-06-10 23:50 | NUR ---
VITAL SIGNS WITH IN NORMAL RANGE, PATIENT VOID X1. PATIENT RESTING IN BED, NO S/S OF ACUTE DISTRESS NOTED, RESPIRATION EVEN AND UNLABORED, CALL LIGHT WITHIN REACH, SAFETY MEASURE ENSURED, WILL CONTINUE TO MONITOR.
[2017-06-11] VITALS: BP 125/84
--- NOTE | 2017-06-11 01:36 | NUR ---
PATIENT SLEEPING IN BED, NO S/S OF ACUTE DISTRESS NOTED, RESPIRATION EVEN AND UNLABORED, CALL LIGHT WITHIN REACH, SAFETY MEASURE ENSURED, WILL CONTINUE TO MONITOR.
[2017-06-11] MEDS: NACL 0.9% 1,000 ML IV SCH ×2 (03:48→14:46)
--- NOTE | 2017-06-11 03:51 | NUR ---
STARTED A NEW BAG OF NS, PATIENT SLEEPING IN BED, NO S/S OF ACUTE DISTRESS NOTED, RESPIRATION EVEN AND UNLABORED, WILL CONTINUE TO MONITOR.
[2017-06-11 04:00] VITALS: BP 132/77
--- NOTE | 2017-06-11 05:07 | NUR ---
PATIENT SLEEPING AT THIS TIME. NO S/S OF ACUTE DISTRESS NOTED, RESPIRATION EVEN AND UNLABORED, CALL LIGHT WITHIN REACH, SAFETY MEASURE ENSURED, WILL CONTINUE TO MONITOR.
[2017-06-11] MEDS: oxyCODONE/APAP 5/325 MG 1 TAB TAB PO PRN ×2 (06:05→14:37)
--- NOTE | 2017-06-11 06:05 | NUR ---
PATIENT STATED," I HAVE ABDOMINAL PAIN AND IT'S 9." PAIN MEDICATION GIVEN ORDERED, WILL CONTINUE TO MONITOR.
[2017-06-11 06:27] LABS: ANION GAP 11.1 (8-16); CARBON DIOXIDE 26.7 mmol/L (21-32); CREATININE 0.6 mg/dL (0.6-1.3); POTASSIUM 3.8 mmol/L (3.5-5.1)
[2017-06-11 07:24] LABS: HEMATOCRIT 23.8 % (36-48); MEAN CORPUSCULAR HEMOGLOBIN 18 pg (27-31); MEAN CORPUSCULAR HGB CONC 29 g/dL (33-37); MEAN CORPUSCULAR VOLUME 63 fL (80-94); PLATELET COUNT (AUTO) 445 K/uL (140-450); RED CELL DISTRIBUTION WIDTH 22.1 % (11.6-13.7); WHITE BLOOD COUNT (AUTO) 9.6 K/uL (4.8-10.8)
--- NOTE | 2017-06-11 07:25 | NUR ---
ASSUMED CONTINUITY OF CARE. NO SIGNS AND SYMPTOMS OF ACUTE DISTRESS NOTED. INITIAL ASSESSMENT DONE. KEEP COMFORTABLE ON BED. EXPLAINED DIAGNOSIS, PLAN OF CARE, PAIN MANAGEMENT TEACHING, CONTACT ISOLATION PRECAUTION, USE OF CALL LIGHT/BED/TV/BATHROOM. VERBALIZED UNDERSTANDING. CALL LIGHT WITHIN REACH.
[2017-06-11 07:29] LABS: HEMOGLOBIN 6.9 g/dL (12.0-16.0)
[2017-06-11 07:30] LABS: EOSINOPHILS % (MANUAL) 2 % (0-4); LYMPHOCYTES % (MANUAL) 13 % (20-46); MONOCYTES % (MANUAL) 7 % (5-12)
--- NOTE | 2017-06-11 07:30 | NUR ---
INFORMED DR. GUTIERREZ ABOUT CRITICAL LAB RESULTS OF HGB 6.9. ALSO INFORMED CHARGE NURSE STACIA SYKES.
--- NOTE | 2017-06-11 07:30 | NUR ---
ENDORSED PLAN OF CARE TO DAY RN, PATIENT IS IN STABLE CONDITION, NO S/S OF ACUTE DISTRESS NOTED, RESPIRATION EVEN AND UNLABORED.
[2017-06-11 08:00] VITALS: BP 130/88
--- NOTE | 2017-06-11 08:00 | NUR ---
Patient's Plan of Care was discussed and reviewed with LEAN LEADER: CHI
--- NOTE | 2017-06-11 08:34 | NUR ---
REMINDED DR. GUTIERREZ ABOUT PT. CRITICAL VALUE HGB 6.9. PER DR. GUTIERREZ, HE WILL ORDER FERRLICIT IV LATER. INFORMED CHARGE NURSE STACIA SYKES.
[2017-06-11] MEDS: MESALAMINE 400 MG CAPSULE.DR PO SCH ×3 (08:57→17:20)
[2017-06-11] MEDS: predniSONE 20 MG TAB PO SCH (08:57)
[2017-06-11] MEDS: azaTHIOprine 50 MG TAB PO SCH (08:57)
[2017-06-11] MEDS: metroNIDAZOLE 250 MG TAB PO SCH ×3 (08:57→17:20)
[2017-06-11] MEDS: ESCITALOPRAM 20 MG TAB PO SCH (08:57)
[2017-06-11] MEDS: PANTOPRAZOLE 40 MG TABEC PO SCH (08:58)
[2017-06-11] MEDS: busPIRone 5 MG TAB PO SCH (08:58)
[2017-06-11] MEDS: amLODIPine 5 MG TAB PO SCH (08:58)
[2017-06-11] MEDS: ATENOLOL 25 MG TAB PO SCH (09:00)
[2017-06-11] MEDS: HYDROmorphone 1 MG/ML AMP IVP PRN (09:05)
--- NOTE | 2017-06-11 09:35 | NUR ---
PT. SPOKE TO DR. GUTIERREZ ABOUT VAGINAL BLEEDING THAT STARTED SINCE 2016 UNTIL NOW (06/11/17). ALSO INFORMED CHARGE NURSE STACIA SYKES ABOUT PT. AND DR. GUTIERREZ CONVERSATION ABOUT PT. VAGINAL BLEEDING.
--- NOTE | 2017-06-11 09:40 | NUR ---
CALLED [facility] FROM PHARMACY AND VERIFIED DR. GUTIERREZ ORDER OF FERRLECIT IV FOR PT. HGB 6.9. INFORMED CHARGE NURSE STACIA SYKES.
[2017-06-11] MEDS ORDERED: FERRIC GLUCONATE 125 MG in NACL 0.9% 100 ML IV SCH (09:43)
--- NOTE | 2017-06-11 11:16 | NUR ---
USE [employer] WITH TECHNICIAN PREVENTATIVE MEDICINE #[id number], EXPLAINED PT. USE OF CALL LIGHT, AND USE OF BEDPAN. PT. VERBALIZED UNDERSTANDING. Addendum: 06/11/17 at 1654 by Janes Elizalde LVN WRONG ENTRY: ENTERED AT WRONG PT..
--- NOTE | 2017-06-11 11:30 | NUR ---
FELTON LEON ASSISTED PT. USE OF BEDPAN. GOT 260. ML CLEAR YELLOW URINE OUTPUT. NO C/O PAIN. KEEP COMFORTABLE ON BED. Addendum: 06/11/17 at 1654 by Janes Elizalde LVN WRONG ENTRY: ENTERED AT WRONG PT..
[2017-06-11 12:00] VITALS: BP 127/88
--- NOTE | 2017-06-11 12:42 | NUR ---
FELTON LEON ASSISTED PT. USE OF BEDPAN. GOT 260 ML. CLEAR YELLOW URINE OUTPUT. KEEP COMFORTABLE ON BED. CALL LIGHT WITHIN REACH. Addendum: 06/11/17 at 1655 by Janes Elizalde LVN WRONG ENTRY: ENTERED AT WRONG PT..
--- NOTE | 2017-06-11 14:23 | NUR ---
FELTON LEON ASSISTED PT. USE OF BEDPAN. GOT 340 ML. CLEAR YELLOW URINE OUTPUT. NO C/O PAIN. NO SOB, NOTED. CALL LIGHT WITHIN REACH. Addendum: 06/11/17 at 1655 by Janes Elizalde LVN WRONG ENTRY: ENTERED AT WRONG PT..
--- NOTE | 2017-06-11 15:20 | NUR ---
US TECH CAME REGARDING PT. TRANSVAGINAL US THAT WAS ORDERED BY DR. GUTIERREZ.
[2017-06-11 15:24] LABS: HEMATOCRIT 27.2 % (36-48); HEMOGLOBIN 7.8 g/dL (12.0-16.0); MEAN CORPUSCULAR HEMOGLOBIN 18 pg (27-31); MEAN CORPUSCULAR HGB CONC 29 g/dL (33-37); MEAN CORPUSCULAR VOLUME 63 fL (80-94); PLATELET COUNT (AUTO) 490 K/uL (140-450); RED BLOOD CELL COUNT(AUTO) 4.31 MIL/uL (4.20-5.40); RED CELL DISTRIBUTION WIDTH 22.4 % (11.6-13.7); WHITE BLOOD COUNT (AUTO) 10.8 K/uL (4.8-10.8)
--- NOTE | 2017-06-11 15:40 | NUR ---
DR. GUTIERREZ WENT INSIDE PT. ROOM AND SPOKE TO PT. VIA [facility] ([employer] PHONE). DR. GUTIERREZ ASKED TO GIVE PAIN MEDICINE TO PT. FOR C/O 03/25 GERMAINE KNEE PAIN PER PT. REQUEST. Addendum: 06/11/17 at 1655 by Janes Elizalde LVN WRONG ENTRY: ENTERED AT WRONG PT..
[2017-06-11 15:48] LABS: LYMPHOCYTES % (MANUAL) 11 % (20-46); MONOCYTES % (MANUAL) 4 % (5-12)
--- NOTE | 2017-06-11 15:54 | NUR ---
INFORMED DR. GUTIERREZ ABOUT LATEST CBC RESULTS. ALSO INFORMED CHARGE NURSE STACIA DELGADO -ERIN ABOUT CBC RESULTS.
[2017-06-11 16:00] VITALS: BP 133/88
--- NOTE | 2017-06-11 16:05 | NUR ---
ASSISTED PT. USE OF BEDPAN. GOT 150 ML. CLEAR YELLOW URINE OUTPUT. KEEP COMFORTABLE ON BED. Addendum: 06/11/17 at 1656 by Janes Elizalde LVN WRONG ENTRY: ENTERED AT WRONG PT..
--- NOTE | 2017-06-11 16:45 | NUR ---
CALLED RADIOLOGY AND SPOKE TO [place], ASKED RESULT FOR TRANSVAGINAL US PER DR. GUTIERREZ REQUEST BECAUSE PT. WILL BE D/C. PER. [place] RESULTS NOT AVAILABLE YET AT THIS TIME. INFORMED DR. GUTIERREZ AND CHARGE NURSE STACIA SYKES.
--- NOTE | 2017-06-11 17:36 | NUR ---
CALLED AGAIN -[place] FROM RADIOLOGY AND ASKED RESULTS OF TRANSVAGINAL US. NO RESULTS AVAILABLE YET PER [place]. INFORMED DR. GUTIERREZ AND CHARGE NURSE STACIA SYKES.
--- NOTE | 2017-06-11 19:05 | NUR ---
GAVE DR. MARVIN PRINTED COPY OF TRANSVAGINAL US RESULTS. PER DR. MARVIN HE WILL PUT D/C ORDER AND COMPLETE D/C PROCESS NOW. INFORMED CHARGE NURSE STACIA SYKES.
--- NOTE | 2017-06-11 19:21 | NUR ---
BEDSIDE REPORT GIVEN TO MYRIAM SYKES. IN STABLE CONDITION. ALSO ENDORSED ABOUT PT. D/C HOME TONIGHT.
--- NOTE | 2017-06-11 19:22 | NUR ---
RECEIVED REPORT FROM AM NURSE. PT IS AOX4, ABLE TO MAKE NEEDS KNOWN. NO S/S OF DISTRESS. NO COMPLAINTS OF PAIN. SKIN IS INTACT. WILL CONTINUE TO MONITOR. AWAITING FOR D/C FROM THE RESIDENTS. WILL CONTINUE TO MONITOR. ALL NEEDS ATTENDED. CALL LIGHT WITHIN REACH. SAFETY CHECKS IN PLACE.
[2017-06-11] MEDS ORDERED: METH4TAB27 PO (19:25)
[2017-06-11] MEDS ORDERED: DIPH25SG5 PO (19:25)
[2017-06-11] MEDS ORDERED: ACET-5629 PO (19:25)
--- NOTE | 2017-06-11 19:40 | NUR ---
RECEIVED D/C ORDER. DISCUSSED DISCHARGE AND PATIENT SIGNED PAPERS, VERBALIZED UNDERSTANDING. IV WAS TAKEN OUT, CANNULA INTACT. VALUABLES TAKEN WITH HER. WHEELED OUT BY WILLIE.
== END 2017-06-11 19:40 | disposition home or self-care (01) | DRG 386 ==
LOC: MED 07:55 → MTU 12:46
PROVIDERS: ADMIT Family Medicine; ATTEND Family Medicine
DX: K50.90 Crohn's disease, unspecified, without complications (principal); F33.9 Major depressive disorder, recurrent, unspecified; E46 Unspecified protein-calorie malnutrition; D50.9 Iron deficiency anemia, unspecified; I10 Essential (primary) hypertension; F41.9 Anxiety disorder, unspecified; F17.210 Nicotine dependence, cigarettes, uncomplicated; E66.9 Obesity, unspecified; R31.0 Gross hematuria; K21.9 Gastro-esophageal reflux disease without esophagitis; E78.00 Pure hypercholesterolemia, unspecified; N92.1 Excessive and frequent menstruation with irregular cycle; G47.00 Insomnia, unspecified; Z90.49 Acquired absence of other specified parts of digestive tract; Z98.51 Tubal ligation status; Z88.6 Allergy status to analgesic agent; Z88.5 Allergy status to narcotic agent; Z91.02 Food additives allergy status; Z68.37 Body mass index [BMI] 37.0-37.9, adult
CPT/HCPCS: 36415; 71010; 76770; 76830; 80048; 80053; 80305; 81001; 81025; 82140; 82150; 82607; 82728; 82746; 83540; 83605; 83690; 83735; 83880; 84100; 84439; 84443; 84484; 84703; 85025; 85045; 85610; 85730; 87040; 87081; 93005; 96361; 96374; 96375; 96376; 99285; J1170; J1200; J2405; J2916; J7030; J7512; Q0092; Q0163; Q9967

== ENCOUNTER 2017-11-05 20:15 | Emergency (ER) | payer OTHER, MEDICAID ==
[~2017-11-05] VITALS: Ht 162.6 cm; Wt 98.9 kg
[~2017-11-05 20:15] MED LIST changes: +ACET-5629 PO; +DIPH25SG5 PO; +METH4TAB27 PO
[2017-11-05 20:22] VITALS: BP 132/78
--- NOTE | 2017-11-05 20:30 | NUR ---
TO ER BED 10
--- NOTE | 2017-11-05 20:46 | NUR ---
C/O BACK PAIN, S/P "HELPING SON IN SHOWER" PT STATES SHE HAS SHARP SPASMS TO THE LEFT SIDE OF HER BACK FOR 2 HOURS, PT TOOK 800MG IBUPROFEN AT HOME 2 HOURS AGO. PAIN 9/10. PT POSITIONED FOR COMFORT, SITTING ON SIDE OF BED, RR EVEN AND UNLABORED, SHALLOW RR, BL BS CLEAR THROUGH OUT, PT STATES "HURTS TO TAKE A DEEP BREATH". HX HTN, CHROHNS DZ, ANXIETY, DEPRESSION, TUBAL LIGATION, APPENDIX REMOVED, MRSA INFECTION IN STOMACH AREA SURGERICAL REMOVAL.
[2017-11-05] MEDS ORDERED: traMADol 50 MG TAB PO ONE (21:45)
[2017-11-05] MEDS ORDERED: LORazepam 2 MG/ML VIAL IM ONE (21:45)
--- NOTE | 2017-11-05 22:10 | NUR ---
PT TAKEN TO XRAY VIA WHEEL CHAIR
--- NOTE | 2017-11-05 22:45 | NUR ---
PT C/O PAIN AT THIS TIME 06/25, ER MD NOTIFIED, WILL FOLLOW NEW ORDERS.
[2017-11-05] MEDS ORDERED: HYDROmorphone PFS 2 MG/ML SYR IM ONE (22:50)
[2017-11-05 23:20] VITALS: BP 131/67
--- NOTE | 2017-11-05 23:20 | NUR ---
Patient discharged with v/s stable. Written and verbal after care instructions given and explained. Patient alert, oriented and verbalized understanding of instructions. Ambulatory with steady gait. All questions addressed prior to discharge. ID band removed. Patient advised to follow up with PMD. Rx of MEDROL, TRAMADOL given. Patient educated on indication of medication including possible reaction and side effects. Opportunity to ask questions provided and answered. PT ADVISED NOT TO DRIVE TONIGHT, STATES BROTHER WILL BE DRIVING HER HOME.
== END 2017-11-05 23:20 | disposition home or self-care (01) ==
LOC: MED 20:15
DX: S39.012A Strain of muscle, fascia and tendon of lower back, initial encounter (principal); I10 Essential (primary) hypertension; Z88.5 Allergy status to narcotic agent; Z88.6 Allergy status to analgesic agent; X58.XXXA Exposure to other specified factors, initial encounter; Y93.89 Activity, other specified; Y92.89 Other specified places as the place of occurrence of the external cause; Y99.8 Other external cause status
CPT/HCPCS: 71045; 72072; 81025; 96372; 99284; J1170; J2060

== ENCOUNTER 2018-04-26 00:12 | Emergency (ER) | payer OTHER ==
[~2018-04-26] VITALS: Ht 162.6 cm; Wt 113.1 kg
[2018-04-26 00:14] VITALS: BP 128/87
--- NOTE | 2018-04-26 00:14 | NUR ---
PATIENT TRIAGED. VSS. SENT TO ER LOBBY.
--- NOTE | 2018-04-26 00:29 | NUR ---
Patient ambulated to bed 4. RN evaluating patient at bedside.
--- NOTE | 2018-04-26 00:34 | NUR ---
Dr. Stack evaluating patient at bedside.
[2018-04-26 00:45] LABS: BASOPHILS # (AUTO) 0.1 K/uL (0.00-0.22); EOSINOPHILS # (AUTO) 0.3 K/uL (0-0.4)
[2018-04-26 00:51] LABS: EOSINOPHILS % (AUTO) 3.4 % (0.0-4.0); HEMATOCRIT 26.7 % (36-48); LYMPHOCYTES # (AUTO) 2.4 K/uL (2.5-16.5); LYMPHOCYTES % (AUTO) 28.7 % (20.5-51.1); MEAN CORPUSCULAR HEMOGLOBIN 18 pg (27-31); MEAN CORPUSCULAR HGB CONC 30 g/dL (33-37); MEAN CORPUSCULAR VOLUME 59.8 fL (80-94); MONOCYTES # (AUTO) 0.6 K/uL (0.8-1.0); MONOCYTES % (AUTO) 6.5 % (1.7-9.3); NEUTROPHILS # (AUTO) 5.1 K/uL (1.8-7.7); NEUTROPHILS % (AUTO) 60.4 % (42.2-75.2); PLATELET COUNT (AUTO) 429 K/uL (140-450); RED BLOOD CELL COUNT(AUTO) 4.47 MIL/uL (4.20-5.40); RED CELL DISTRIBUTION WIDTH 20.4 % (11.6-13.7); WHITE BLOOD COUNT (AUTO) 8.5 K/uL (4.8-10.8)
[2018-04-26 00:55] LABS: ANION GAP 9.7 (8-16); CARBON DIOXIDE 29.1 mmol/L (21-32); CREATININE 0.7 mg/dL (0.6-1.3); POTASSIUM 3.8 mmol/L (3.5-5.1)
[2018-04-26 01:01] LABS: ALBUMIN 3.3 g/dL (3.4-5.0); TOTAL BILIRUBIN 0.1 mg/dL (0.0-1.0)
[2018-04-26] MEDS ORDERED: fentaNYL 0.05 MG/ML VIAL IM ONE (02:00)
[2018-04-26 02:40] VITALS: BP 113/76
--- NOTE | 2018-04-26 02:40 | NUR ---
PT STATES FENTANYL INJ WAS NOT HELPFUL WITH PAIN. DR BARRAZA NOTIFIED. MORE PAIN MANEGEMENT WAS OFFERED. PT REFUSED AND INSISTED ON BEING DISCHARGED HOME.
--- NOTE | 2018-04-26 02:45 | NUR ---
Patient discharged with v/s stable. Written and verbal after care instructions given and explained. Patient alert, oriented and verbalized understanding of instructions. Ambulatory with steady gait. All questions addressed prior to discharge. ID band removed. Patient advised to follow up with PMD. Rx of Cipro, Zofran, Prednisone given. Patient educated on indication of medication including possible reaction and side effects. Opportunity to ask questions provided and answered.
== END 2018-04-26 02:45 | disposition home or self-care (01) ==
LOC: MED 00:12
DX: K50.90 Crohn's disease, unspecified, without complications (principal); F17.210 Nicotine dependence, cigarettes, uncomplicated; I10 Essential (primary) hypertension; Z88.8 Allergy status to other drugs, medicaments and biological substances; Z90.49 Acquired absence of other specified parts of digestive tract; Z88.5 Allergy status to narcotic agent
CPT/HCPCS: 36415; 80053; 81025; 83690; 85025; 96372; 99284; J3010

== ENCOUNTER 2018-12-25 20:41 | Emergency (ER) | payer OTHER ==
[~2018-12-25] VITALS: Ht 162.6 cm; Wt 115.2 kg
[~2018-12-25 20:41] MED LIST changes: -TRAZ-289 PO; +TRAZ100T78 PO
[2018-12-25 21:09] VITALS: BP 145/91
--- NOTE | 2018-12-25 21:14 | NUR ---
PT AMBULATED TO LOBBY WITH VSS. PROVIDED WITH URINE CUP.
--- NOTE | 2018-12-25 22:44 | NUR ---
PT AMBULATED TO BED #5
--- NOTE | 2018-12-25 22:50 | NUR ---
BIB SELF. C/O NON-RADIATING EPIGASTRIC ABD PAIN X2 DAYS. 8/10 PAIN. X4 QUADRANT BOWEL SOUNDS PRESENT. DENIES VOMITING OR DIARRHEA BUT STATES SHE HAS MILD NAUSEA. DENIES CP, SOB, OR FEVER. STATES SHE HAS HAD THIS PAIN BEFORE BUT DOES NOT KNOW WHAT IT IS. SHE STATES SHE TOOK AN ANTACID AND TYLENOL WITH NO RELIEF.
--- NOTE | 2018-12-26 00:15 | NUR ---
patient states she is in a lot of pain. Dr. Fenton made aware.
[2018-12-26] MEDS ORDERED: IBUPROFEN 800 MG TAB PO ONE (00:30)
[2018-12-26 00:33] VITALS: BP 138/78
--- NOTE | 2018-12-26 00:33 | NUR ---
patient refused motrin at this time.
--- NOTE | 2018-12-26 00:33 | NUR ---
Patient discharged with v/s stable. Written and verbal after care instructions given and explained. Patient alert, oriented and verbalized understanding of instructions. Ambulatory with steady gait. All questions addressed prior to discharge. ID band removed. Patient advised to follow up with PMD. Rx of lactulose, mineral oil given. Patient educated on indication of medication including possible reaction and side effects. Opportunity to ask questions provided and answered.
== END 2018-12-26 00:34 | disposition home or self-care (01) ==
LOC: MED 20:41
DX: R10.13 Epigastric pain (principal); R11.0 Nausea; I10 Essential (primary) hypertension; Z79.899 Other long term (current) drug therapy; Z88.5 Allergy status to narcotic agent; Z88.6 Allergy status to analgesic agent; Z91.018 Allergy to other foods
CPT/HCPCS: 74022; 81002; 81025; 99283; 99284

== ENCOUNTER 2019-06-21 18:04 | Emergency (ER) | payer OTHER ==
[~2019-06-21] VITALS: Ht 162.6 cm; Wt 118.4 kg
[2019-06-21 18:14] VITALS: BP 152/90
--- NOTE | 2019-06-21 18:20 | NUR ---
Gin henson in [facility] - 06/21/19 at 1837 by EVANS PT AMBULATED TO RESTROOM AT THIS TIME, CARISSA
--- NOTE | 2019-06-21 18:20 | NUR ---
PT AMBULATED TO LOBBY AT THIS TIME, VSS.
[2019-06-21 18:52] LABS: BASOPHILS # (AUTO) 0.1 K/uL (0.00-0.22); BASOPHILS % (AUTO) 1.1 % (0.0-2.0); EOSINOPHILS # (AUTO) 0.3 K/uL (0-0.4); EOSINOPHILS % (AUTO) 3.7 % (0.0-4.0); HEMATOCRIT 31.3 % (36-48); HEMOGLOBIN 9.4 g/dL (12.0-16.0); LYMPHOCYTES # (AUTO) 2.1 K/uL (2.5-16.5); LYMPHOCYTES % (AUTO) 28.6 % (20.5-51.1); MEAN CORPUSCULAR HEMOGLOBIN 19 pg (27-31); MEAN CORPUSCULAR HGB CONC 30 g/dL (33-37); MEAN CORPUSCULAR VOLUME 64.2 fL (80-94); MONOCYTES # (AUTO) 0.5 K/uL (0.8-1.0); MONOCYTES % (AUTO) 6.5 % (1.7-9.3); NEUTROPHILS # (AUTO) 4.4 K/uL (1.8-7.7); NEUTROPHILS % (AUTO) 60.1 % (42.2-75.2); PLATELET COUNT (AUTO) 474 K/uL (140-450); RED BLOOD CELL COUNT(AUTO) 4.87 MIL/uL (4.20-5.40); WHITE BLOOD COUNT (AUTO) 7.4 K/uL (4.8-10.8)
[2019-06-21 19:17] LABS: CARBON DIOXIDE 24.1 mmol/L (21-32); CREATININE 0.9 mg/dL (0.6-1.3); POTASSIUM 4.1 mmol/L (3.5-5.1)
[2019-06-21 19:20] LABS: ALBUMIN 3.5 g/dL (3.4-5.0); TOTAL BILIRUBIN 0.3 mg/dL (0.0-1.0)
--- NOTE | 2019-06-21 19:54 | NUR ---
PT AMBULATED TO BED 1.
--- NOTE | 2019-06-21 20:06 | NUR ---
PT BIB SELF WITH C/O FALL DOWN 7 STAIRS AFTER GETTING DIZZY YESTERDAY. FELL ON HER BACK HIT HEAD, - LOC, + N/V. LOWER BACK PAIN THAT INCREASES WITH LAYING DOWN. PT STATES HER PAIN IS AT THE SACRAL REGION ALL THE WAY BACK TO HER TAIL BONE. PAIN 8/10 AT THIS TIME. ABLE TO BEND OVER , STATES FEEL COMFORTABLE WHEN SHE LEANS OVER THE BED AND KEEPS HER BENDING POSITION. ER MD TO SEE THE PT. WILL CONTINUE TO MONITOR PT. MEDHX:CHRONS, DEPRESSION, HTN, MRSA, INSOMNIA, ANXIETY, PREDIABETES RX:SEE LIST
[2019-06-21] MEDS ORDERED: fentaNYL 0.05 MG/ML VIAL IM ONE (21:10)
--- NOTE | 2019-06-21 21:10 | NUR ---
REPORT GIVEN TO PM RN. PT STABLE AT THIS TIME. ER MD AT THE BEDSIDE.
--- NOTE | 2019-06-21 21:44 | NUR ---
PT STATES HER POSITION OF COMFORT IS STANDING UP. PT C/O OF LOWER BACK PAIN 04/24. PT VSS. ERMD AWARE. WILL CONTINUE TO MONITOR.
[2019-06-21 22:20] VITALS: BP 143/81
--- NOTE | 2019-06-21 22:20 | NUR ---
PT DISCHARGED WITH PAPERWORK. RX NORCO FOR PAIN. EDUCATED PT REGARDING MEDICATIONS AND S/E. EDUCATED PT REGARDING D/C DIAGNOSIS. PT VERBALIZED UNDERSTANDING OF TEACHING. TOLD PT TO FOLLOW UP WITH PCP AND WHEN TO RETURN TO ED. PT VSS. ALL QUESTIONS ANSWERED.
== END 2019-06-21 22:20 | disposition home or self-care (01) ==
LOC: MED 18:04
DX: M54.5 Low back pain (principal); I10 Essential (primary) hypertension; F32.9 Major depressive disorder, single episode, unspecified; F41.9 Anxiety disorder, unspecified; F17.200 Nicotine dependence, unspecified, uncomplicated; Z88.5 Allergy status to narcotic agent; Z88.8 Allergy status to other drugs, medicaments and biological substances; Z79.899 Other long term (current) drug therapy; Z90.49 Acquired absence of other specified parts of digestive tract; Z98.890 Other specified postprocedural states
CPT/HCPCS: 36415; 71045; 72110; 80053; 81002; 81025; 82948; 85025; 96372; 99284; J3010

== ENCOUNTER 2020-11-21 00:49 | Emergency (ER) | payer OTHER ==
[~2020-11-21] VITALS: Ht 165.1 cm; Wt 107.0 kg
[2020-11-21 00:56] VITALS: BP 147/90
--- NOTE | 2020-11-21 00:56 | NUR ---
to bed ambulatory
--- NOTE | 2020-11-21 01:00 | NUR ---
40 Y/O FEMALE BIB SELF WITH C/O THROBBING LEFT FOOT POST INJURY THIS EVENING. SHE REPORTS TAKING 1600 MG OF IBUPROFEN PRIOR TO ED VISIT. AMBULATES WITH UNSTEADY GAIT D/T INJURY AT SITE. PMHX: CROHNS, DEPRESSION, HTN, MRSA, INSOMNIA, ANXIETY & PRE DIABETES. ALLX: TORADOL, MORPHINE, CODIENE, & CITRUS FRUIT
[2020-11-21] MEDS ORDERED: ACETAMINOPHEN 325 MG TAB PO ONE (01:05)
--- NOTE | 2020-11-21 01:05 | NUR ---
ER MD DR. POWERS AT BEDSIDE EVALUATING PT.
[2020-11-21] MEDS ORDERED: HYDROcodone/APAP 5/325 MG 1 TAB TAB PO ONE (01:15)
--- NOTE | 2020-11-21 01:15 | NUR ---
PT SIGNED CONSENT FOR TDAP VACCINATION, VIS GIVEN AND EXPLAINED ITS RISK AND BENEFITS.
--- NOTE | 2020-11-21 01:45 | NUR ---
X-RAY AT BEDSIDE.
--- NOTE | 2020-11-21 03:24 | NUR ---
PT WAS GIVEN CRUTCHES. PT SHOWED GOOD USE OF CRUTCHES.
[2020-11-21 03:27] VITALS: BP 138/87
--- NOTE | 2020-11-21 03:27 | NUR ---
Patient discharged with v/s stable. Written and verbal after care instructions given and explained. Patient verbalized understanding. Ambulatory with steady gait. All questions addressed prior to discharge. Advised to follow up with PMD.
== END 2020-11-21 03:27 | disposition home or self-care (01) ==
LOC: MED 00:49
DX: S90.112A Contusion of left great toe without damage to nail, initial encounter (principal); I10 Essential (primary) hypertension; Z88.5 Allergy status to narcotic agent; Z88.8 Allergy status to other drugs, medicaments and biological substances; Z79.899 Other long term (current) drug therapy; X58.XXXA Exposure to other specified factors, initial encounter; Y93.89 Activity, other specified; Y92.89 Other specified places as the place of occurrence of the external cause; Y99.8 Other external cause status
CPT/HCPCS: 73630; 73660; 90471; 90715; 99284; Q0163

== ENCOUNTER 2021-02-17 02:57 | Emergency (ER) | payer OTHER ==
[~2021-02-17] VITALS: Ht 162.6 cm; Wt 126.1 kg
--- NOTE | 2021-02-17 02:59 | NUR ---
BIBA TAKEN TO BED #9
[2021-02-17 03:02] VITALS: BP 124/98
[2021-02-17] MEDS ORDERED: methylPREDNISolone SS 125 MG/2 ML VIAL IVP ONE (03:10)
[2021-02-17] MEDS ORDERED: NACL 0.9% 1,000 ML IV ONE ×2 (03:10→04:15)
[2021-02-17] MEDS ORDERED: NACL 0.9% 1,000 ML IV SCH (03:10)
[2021-02-17] MEDS ORDERED: ONDANSETRON 4 MG/2 ML VIAL IVP ONE ×2 (03:10→03:25)
--- NOTE | 2021-02-17 03:18 | NUR ---
ERMD AT BEDSIDE FOR MEDICAL EVALUATION.
--- NOTE | 2021-02-17 03:20 | NUR ---
LABS COLLECTED AND HANDED TO HAZEL FROM [facility].
--- NOTE | 2021-02-17 03:20 | NUR ---
DELAY IN EKG ADMINISTRATION DUE TO PATIENT TAKEN TO RADIOLOGY.
--- NOTE | 2021-02-17 03:20 | NUR ---
ERMD MADE AWARE OF PATIENTS ALLERGY/ REACTION TO MORPHINE. ERMD ORDERED MORPHINE W BENADRYL ADMINISTRATION.
[2021-02-17] MEDS ORDERED: diphenhydrAMINE 50 MG/ML VIAL IVP ONE ×3 (03:25→06:05)
[2021-02-17] MEDS ORDERED: MORPHINE SULFATE 4 MG/ML SYR IVP ONE (03:25)
[2021-02-17 03:29] LABS: BASOPHILS % (AUTO) 0.3 % (0.0-2.0); EOSINOPHILS # (AUTO) 0.2 K/uL (0-0.4); EOSINOPHILS % (AUTO) 1.5 % (0.0-4.0); HEMATOCRIT 28.9 % (36-48); HEMOGLOBIN 8.5 g/dL (12.0-16.0); LYMPHOCYTES % (AUTO) 14.5 % (20.5-51.1); MEAN CORPUSCULAR HEMOGLOBIN 18 pg (27-31); MEAN CORPUSCULAR HGB CONC 29 g/dL (33-37); MEAN CORPUSCULAR VOLUME 61.7 fL (80-94); MONOCYTES # (AUTO) 0.7 K/uL (0.8-1.0); MONOCYTES % (AUTO) 5.1 % (1.7-9.3); NEUTROPHILS # (AUTO) 10.8 K/uL (1.8-7.7); NEUTROPHILS % (AUTO) 78.6 % (42.2-75.2); PLATELET COUNT (AUTO) 570 K/uL (140-450); RED BLOOD CELL COUNT(AUTO) 4.68 MIL/uL (4.20-5.40); RED CELL DISTRIBUTION WIDTH 20.7 % (11.6-13.7); WHITE BLOOD COUNT (AUTO) 13.8 K/uL (4.8-10.8)
--- NOTE | 2021-02-17 03:33 | NUR ---
PT RETURNED FROM RADIOLOGY.
--- NOTE | 2021-02-17 03:35 | NUR ---
PT AMBULATED TO RESTROOM W/ STEADY GAIT.
--- NOTE | 2021-02-17 03:46 | NUR ---
EKG PERFORMED AT BEDSIDE. EKG READS SINUS TACHYCARDIA @ 115
[2021-02-17 03:53] LABS: ALBUMIN 3.5 g/dL (3.4-5.0); ANION GAP 15.1 (8-16); CARBON DIOXIDE 24.3 mmol/L (21-32); CREATININE 0.9 mg/dL (0.6-1.3); POTASSIUM 4.4 mmol/L (3.5-5.1); TOTAL BILIRUBIN 0.2 mg/dL (0.0-1.0)
--- NOTE | 2021-02-17 03:55 | NUR ---
Note natividad in EDM - 02/17/21 at 0431 by GIGI PATIENT REPORTS ITCHING TO HER ARMS, LEGS AND TONGUE S/P MORPHINE ADMINISTRATION, ERMD MADE AWARE. FOLLOWED BALTAZAR NEXT ORDERS.
--- NOTE | 2021-02-17 03:59 | NUR ---
PATIENT REPORTS ITCHING TO HER ARMS, LEGS AND TONGUE S/P MORPHINE ADMINISTRATION, ERMD MADE AWARE. FOLLOWED ERMD NEXT ORDERS.
[2021-02-17] MEDS ORDERED: FAMOTIDINE 20 MG/2 ML VIAL IVP ONE (04:00)
[2021-02-17 04:08] LABS: APPEARANCE,URINE CLEAR (CLEAR); BILIRUBIN,URINE NEGATIVE (NEGATIVE); BLOOD, URINE 3+ (NEGATIVE); COLOR,URINE YELLOW (YELLOW); LEUKOCYTE ESTERASE ,URINE TRACE (NEGATIVE); NITRITE, URINE NEGATIVE (NEGATIVE); UGLUCOSE NEGATIVE (NEGATIVE)
[2021-02-17] MEDS ORDERED: PIPERACILLIN/TAZOBACTAM 3.375 GM in DEXTROSE 5% 50 ML IV ONE (04:15)
[2021-02-17 04:17] LABS: RBC,URINE TOO NUMEROUS TO COUN /HPF (0-5)
[2021-02-17] MEDS ORDERED: PIPERACILLIN/TAZOBACTAM 3.375 GM VIAL IV ONE (04:36)
[2021-02-17] MEDS ORDERED: PROCHLORPERAZINE 10 MG/2 ML VIAL IVP ONE ×2 (06:05→06:25)
[2021-02-17] MEDS ORDERED: MORPHINE SULFATE 2 MG/ML SYR IVP ONE (06:05)
[2021-02-17 06:30] VITALS: BP 146/89
--- NOTE | 2021-02-17 06:30 | NUR ---
PATIENT ELOPED FROM FACILITY. DISCHARGE INSTRUCTIONS NOT GIVEN TO PATIENT. NOTIFIED. PATIENT REPORTS SHE HAS TOO LEAVE TO [employer] HER KIDS. REQUESTED TO BE TAKEN OFF THE MONITOR AND HAVE IV REMOVED. IV WAS REMOVED AND TAKEN OFF VITALS MONITOR.
== END 2021-02-17 06:30 | disposition left against medical advice (07) ==
LOC: MED 02:57
DX: K50.90 Crohn's disease, unspecified, without complications (principal); N39.0 Urinary tract infection, site not specified; R00.0 Tachycardia, unspecified; I10 Essential (primary) hypertension; Z88.8 Allergy status to other drugs, medicaments and biological substances; Z88.5 Allergy status to narcotic agent; Z79.899 Other long term (current) drug therapy
CPT/HCPCS: 36415; 74176; 80053; 81001; 83605; 83690; 84703; 85025; 87040; 87086; 93005; 96361; 96365; 96375; 96376; 99285; J0780; J1200; J2270; J2405; J2543; J2930; J3490; J7030; J7060